=== PATIENT | female | born 1995 | race Caucasian/White ===

== ENCOUNTER 2022-11-06 18:27 | Observation (INO) | payer MEDICAID ==
[~2022-11-06] VITALS: Ht 152.4 cm; Wt 66.2 kg
[2022-11-06] MEDS ORDERED: ONDANSETRON 4 MG/2 ML VIAL IM/IVP PRN (20:50)
[2022-11-06] MEDS ORDERED: PNV91TAB8 PO (21:26)
== END 2022-11-06 23:00 | disposition home or self-care (01) ==
LOC: MED 18:27 → MLD 18:28 → OBSVTOIN 18:42 → MLD 18:42 → INTOOBSV 18:42 → UNDOADMOB 18:42 → UNDODISOB 23:00
PROVIDERS: ADMIT Obstetrics & Gynecology; ATTEND Obstetrics & Gynecology
DX: O26.893 Other specified pregnancy related conditions, third trimester (principal); R10.9 Unspecified abdominal pain; Z20.822 Contact with and (suspected) exposure to COVID-19; O99.891 Other specified diseases and conditions complicating pregnancy; M54.9 Dorsalgia, unspecified; Z3A.31 31 weeks gestation of pregnancy
CPT/HCPCS: 81000; 87426; 96374; G0378; G0379; J2405; 99284

== ENCOUNTER 2022-12-08 16:35 | Observation (INO) | payer MEDICAID ==
[~2022-12-08] VITALS: Ht 152.4 cm; Wt 68.0 kg
[~2022-12-08 16:35] MED LIST: PNV91TAB8 PO
[2022-12-08 17:19] VITALS: BP 109/59; PULSE 84; RESP 19; TEMP 98.1
== END 2022-12-08 17:40 | disposition home or self-care (01) ==
LOC: MLD 16:35
PROVIDERS: ADMIT Obstetrics & Gynecology; ATTEND Obstetrics & Gynecology
DX: O62.9 Abnormality of forces of labor, unspecified (principal); Z3A.34 34 weeks gestation of pregnancy
CPT/HCPCS: G0378; G0379

== ENCOUNTER 2022-12-26 21:08 | Observation (INO) | payer MEDICAID ==
[~2022-12-26] VITALS: Ht 152.4 cm; Wt 68.5 kg
[2022-12-26] MEDS ORDERED: LACTATED RINGERS 1,000 ML IV SCH (22:00)
[2022-12-26 22:13] LABS: BASOPHILS # (AUTO) 0.1 K/uL (0.00-0.22); BASOPHILS % (AUTO) 0.6 % (0.0-2.0); EOSINOPHILS # (AUTO) 0.1 K/uL (0-0.4); EOSINOPHILS % (AUTO) 0.8 % (0.0-4.0); HEMATOCRIT 28.7 % (36-48); HEMOGLOBIN 9.5 g/dL (12.0-16.0); LYMPHOCYTES # (AUTO) 1.8 K/uL (2.5-16.5); LYMPHOCYTES % (AUTO) 19.8 % (20.5-51.1); MEAN CORPUSCULAR HEMOGLOBIN 26 pg (27-31); MEAN CORPUSCULAR HGB CONC 33 g/dL (33-37); MEAN CORPUSCULAR VOLUME 77.7 fL (80-94); MONOCYTES # (AUTO) 0.9 K/uL (0.8-1.0); MONOCYTES % (AUTO) 9.1 % (1.7-9.3); NEUTROPHILS # (AUTO) 6.5 K/uL (1.8-7.7); NEUTROPHILS % (AUTO) 69.7 % (42.2-75.2); PLATELET COUNT (AUTO) 287 K/uL (140-450); RED BLOOD CELL COUNT(AUTO) 3.69 MIL/uL (4.20-5.40); RED CELL DISTRIBUTION WIDTH 15.6 % (11.6-13.7); WHITE BLOOD COUNT (AUTO) 9.3 K/uL (4.8-10.8)
[2022-12-26 22:28] LABS: APPEARANCE,URINE CLEAR (CLEAR); BILIRUBIN,URINE NEGATIVE (NEGATIVE); BLOOD, URINE NEGATIVE (NEGATIVE); COLOR,URINE YELLOW (YELLOW); LEUKOCYTE ESTERASE ,URINE 1+ (NEGATIVE); NITRITE, URINE NEGATIVE (NEGATIVE); PROTEIN,URINE NEGATIVE (NEGATIVE); UGLUCOSE NEGATIVE (NEGATIVE); UROBILINOGEN,URINE 0.2 EU/dL (0.2 - 1)
[2022-12-26 22:55] LABS: ALBUMIN 2.5 g/dL (3.4-5.0); ANION GAP 13.2 (8-16); CALCIUM 8.5 mg/dL (8.5-10.1); CARBON DIOXIDE 23.1 mmol/L (21-32); CREATININE 0.5 mg/dL (0.6-1.3); POTASSIUM 3.3 mmol/L (3.5-5.1); TOTAL BILIRUBIN 0.2 mg/dL (0.0-1.0); TOTAL PROTEIN, SERUM 6.4 g/dL (6.4-8.2)
[2022-12-26 23:50] LABS: BACTERIA,URINE >30 (MANY) /HPF (None Seen); MUCUS,URINE 1+ /LPF (None Seen); RBC,URINE 0-5 /HPF (0-5); SQUAMOUS EPITHELIAL CELL,UR 4-10 (MOD) /LPF (0-3 (FEW))
== END 2022-12-27 05:00 | disposition home or self-care (01) ==
LOC: MLD 21:08
PROVIDERS: ADMIT Obstetrics & Gynecology; ATTEND Obstetrics & Gynecology
DX: O26.893 Other specified pregnancy related conditions, third trimester (principal); R42 Dizziness and giddiness; Z3A.36 36 weeks gestation of pregnancy
CPT/HCPCS: 36415; 80053; 81001; 85025; 87086; G0378

== ENCOUNTER 2023-01-14 17:34 | Observation (INO) | payer MEDICAID ==
[~2023-01-14] VITALS: Ht 152.4 cm; Wt 70.3 kg
[2023-01-14] MEDS ORDERED: CARBOPROST 250 MCG/ML AMP IM PRN (17:55)
[2023-01-14] MEDS ORDERED: LACTATED RINGERS 500 ML IV SCH (17:55)
[2023-01-14] MEDS ORDERED: LACTATED RINGERS 1,000 ML IV SCH (17:55)
[2023-01-14] MEDS ORDERED: OXYTOCIN 10 UNITS/ML VIAL IM SCH (17:55)
[2023-01-14] MEDS ORDERED: OXYTOCIN 20 UNITS in LACTATED RINGERS 1,000 ML IV SCH (17:55)
[2023-01-14] MEDS ORDERED: METHYLERGONOVINE 0.2 MG/ML AMP IM PRN (17:55)
[2023-01-14 18:32] LABS: BASOPHILS % (AUTO) 0.3 % (0.0-2.0); EOSINOPHILS % (AUTO) 0.3 % (0.0-4.0); HEMATOCRIT 29.3 % (36-48); HEMOGLOBIN 9.5 g/dL (12.0-16.0); LYMPHOCYTES # (AUTO) 1.4 K/uL (2.5-16.5); LYMPHOCYTES % (AUTO) 14.5 % (20.5-51.1); MEAN CORPUSCULAR HEMOGLOBIN 24 pg (27-31); MEAN CORPUSCULAR HGB CONC 32 g/dL (33-37); MEAN CORPUSCULAR VOLUME 74.9 fL (80-94); MONOCYTES # (AUTO) 0.6 K/uL (0.8-1.0); MONOCYTES % (AUTO) 6.3 % (1.7-9.3); NEUTROPHILS # (AUTO) 7.7 K/uL (1.8-7.7); NEUTROPHILS % (AUTO) 78.6 % (42.2-75.2); PLATELET COUNT (AUTO) 269 K/uL (140-450); RED BLOOD CELL COUNT(AUTO) 3.92 MIL/uL (4.20-5.40); RED CELL DISTRIBUTION WIDTH 16.6 % (11.6-13.7); WHITE BLOOD COUNT (AUTO) 9.8 K/uL (4.8-10.8)
[2023-01-14 18:48] LABS: INR 0.95 (0.8-1.2); PARTIAL THROMBOPLASTIN TIME 26.7 secs (22-35.6)
[2023-01-14 18:50] LABS: ALBUMIN 2.5 g/dL (3.4-5.0); ANION GAP 14.8 (8-16); CALCIUM 8.8 mg/dL (8.5-10.1); CARBON DIOXIDE 20.6 mmol/L (21-32); CREATININE 0.6 mg/dL (0.6-1.3); POTASSIUM 3.4 mmol/L (3.5-5.1); TOTAL BILIRUBIN 0.2 mg/dL (0.0-1.0); TOTAL PROTEIN, SERUM 6.6 g/dL (6.4-8.2)
[2023-01-14 19:01] VITALS: BP 114/59; PULSE 86; TEMP 98.2
[2023-01-14 20:37] LABS: BILIRUBIN,URINE NEGATIVE (NEGATIVE); BLOOD, URINE 2+ (NEGATIVE); LEUKOCYTE ESTERASE ,URINE 1+ (NEGATIVE); NITRITE, URINE NEGATIVE (NEGATIVE); PROTEIN,URINE NEGATIVE (NEGATIVE); UGLUCOSE NEGATIVE (NEGATIVE); UROBILINOGEN,URINE 0.2 EU/dL (0.2 - 1)
[2023-01-14 20:43] LABS: APPEARANCE,URINE HAZY (CLEAR); COLOR,URINE STRAW (YELLOW)
[2023-01-14 21:27] LABS: BACTERIA,URINE FEW /HPF (None Seen); RBC,URINE TOO NUMEROUS TO COUN /HPF (0-5); SQUAMOUS EPITHELIAL CELL,UR None Seen /LPF (0-3 (FEW)); WBC,URINE 0-5 /HPF (0-5)
[2023-01-14 21:42] LABS: AMPHETAMINE, URINE NEGATIVE ng/ml (NEG <=1000); BARBITURATE, URINE NEGATIVE ng/ml (NEG <=200); BENZODIAZEPINE, URINE NEGATIVE ng/mL (NEG <=200); CANNABINOID, URINE NEGATIVE ng/mL (NEG <=50); COCAINE, URINE NEGATIVE ng/mL (NEG <=300); OPIATE, URINE NEGATIVE ng/mL (NEG <=2000); PHENCYCLIDINE SCREEN,URINE NEGATIVE ng/mL (NEG <=25)
[2023-01-14] MEDS ORDERED: OXYTOCIN 20 UNITS/LR PREMIX 1,000 ML IV ONE (23:55)
[2023-01-16 06:08] LABS: HEPATITIS B SURFACE ANTIGEN Negative (Negative); RUBELLA AB IGG 1.26 index (Immune >0.99)
== END 2023-01-14 19:00 | disposition still patient (30) ==
LOC: MLD 17:34
PROVIDERS: ADMIT Obstetrics & Gynecology; ATTEND Obstetrics & Gynecology
DX: O26.893 Other specified pregnancy related conditions, third trimester (principal); R07.89 Other chest pain; R10.9 Unspecified abdominal pain; Z20.822 Contact with and (suspected) exposure to COVID-19; Z3A.39 39 weeks gestation of pregnancy
CPT/HCPCS: 36415; 80053; 80305; 81001; 85025; 85610; 85730; 86592; 86703; 86762; 86886; 86900; 86901; 87086; 87340; 87426; 93005; G0378; J2590

== ENCOUNTER 2023-01-14 19:02 | Inpatient (IN) | payer MEDICAID ==
[~2023-01-14] VITALS: Ht 152.4 cm; Wt 70.3 kg
[2023-01-14 19:05] VITALS: BP 109/59; PULSE 86; RESP 16; TEMP 97.5; O2SAT 100
[2023-01-14] MEDS ORDERED: NACL 0.9% 1,000 ML IV ONE (19:15)
[2023-01-14 20:02] LABS: BASOPHILS # (AUTO) 0.1 K/uL (0.00-0.22); BASOPHILS % (AUTO) 0.6 % (0.0-2.0); EOSINOPHILS % (AUTO) 0.4 % (0.0-4.0); HEMATOCRIT 30.9 % (36-48); HEMOGLOBIN 9.8 g/dL (12.0-16.0); LYMPHOCYTES # (AUTO) 1.3 K/uL (2.5-16.5); MEAN CORPUSCULAR HEMOGLOBIN 24 pg (27-31); MEAN CORPUSCULAR HGB CONC 32 g/dL (33-37); MEAN CORPUSCULAR VOLUME 76.1 fL (80-94); MONOCYTES # (AUTO) 0.6 K/uL (0.8-1.0); MONOCYTES % (AUTO) 5.9 % (1.7-9.3); NEUTROPHILS # (AUTO) 7.8 K/uL (1.8-7.7); NEUTROPHILS % (AUTO) 80.1 % (42.2-75.2); PLATELET COUNT (AUTO) 279 K/uL (140-450); RED BLOOD CELL COUNT(AUTO) 4.06 MIL/uL (4.20-5.40); RED CELL DISTRIBUTION WIDTH 16.6 % (11.6-13.7); WHITE BLOOD COUNT (AUTO) 9.8 K/uL (4.8-10.8)
[2023-01-14 20:30] LABS: ALBUMIN 2.5 g/dL (3.4-5.0); ANION GAP 13.7 (8-16); CALCIUM 8.9 mg/dL (8.5-10.1); CARBON DIOXIDE 20.7 mmol/L (21-32); CREATININE 0.5 mg/dL (0.6-1.3); POTASSIUM 3.4 mmol/L (3.5-5.1); TOTAL BILIRUBIN 0.3 mg/dL (0.0-1.0); TOTAL PROTEIN, SERUM 6.4 g/dL (6.4-8.2)
[2023-01-14 20:42] VITALS: O2SAT 98
[2023-01-14 21:19] VITALS: BP 103/54
[2023-01-14] MEDS ORDERED: ONDANSETRON 4 MG/2 ML VIAL IM/IVP PRN (22:50)
[2023-01-14] MEDS ORDERED: guaiFENesin DM 200/20 MG-10 ML 10 ML UDC PO PRN (22:50)
[2023-01-14] MEDS ORDERED: DOCUSATE SODIUM 100 MG GELCAP PO PRN (22:50)
[2023-01-14] MEDS ORDERED: ACETAMINOPHEN 325 MG TAB PO PRN (22:50)
[2023-01-14] MEDS ORDERED: NACL 0.9% 1,000 ML IV SCH (22:50)
[2023-01-14] MEDS ORDERED: ZOLPIDEM 5 MG TAB PO PRN (22:50)
[2023-01-14] MEDS ORDERED: POTASSIUM CHLORIDE 10 MEQ TABER PO PRN (22:50)
[2023-01-14] MEDS ORDERED: HYDROcodone/APAP 7.5/325 MG 1 TAB PO PRN (22:50)
[2023-01-14 23:20] VITALS: PULSE 91; RESP 18; O2SAT 98
[2023-01-14 23:27] VITALS: PULSE 95
[2023-01-15] VITALS: PULSE 88
[2023-01-15 02:21] LABS: APPEARANCE,URINE SL CLOUDY (CLEAR); BILIRUBIN,URINE NEGATIVE (NEGATIVE); BLOOD, URINE 3+ (NEGATIVE); COLOR,URINE YELLOW (YELLOW); LEUKOCYTE ESTERASE ,URINE 2+ (NEGATIVE); NITRITE, URINE NEGATIVE (NEGATIVE); PROTEIN,URINE NEGATIVE (NEGATIVE); UGLUCOSE NEGATIVE (NEGATIVE); UROBILINOGEN,URINE 0.2 EU/dL (0.2 - 1)
[2023-01-15 02:23] LABS: RBC,URINE 0-5 /HPF (0-5)
[2023-01-15 02:24] LABS: BACTERIA,URINE >30 (MANY) /HPF (None Seen); MUCUS,URINE 1+ /LPF (None Seen); SQUAMOUS EPITHELIAL CELL,UR 0-3 (FEW) /LPF (0-3 (FEW)); WBC,URINE TOO MANY TO COUNT /HPF (0-5)
[2023-01-15] MEDS ORDERED: MORPHINE SULFATE 4 MG/ML SYR IVP PRN (02:35)
[2023-01-15] MEDS ORDERED: LIDOCAINE 1% 500 MG/50 ML VIAL ONE (03:19)
[2023-01-15] MEDS ORDERED: METHYLERGONOVINE 0.2 MG/ML AMP ONE (03:23)
[2023-01-15] MEDS ORDERED: DOCUSATE SODIUM 100 MG GELCAP PO PRN (04:00)
[2023-01-15] MEDS ORDERED: SIMETHICONE 80 MG TAB.CHEW PO PRN (04:00)
[2023-01-15] MEDS ORDERED: IBUPROFEN 800 MG TAB PO PRN (04:00)
[2023-01-15] MEDS ORDERED: IBUPROFEN 600 MG TAB PO PRN (04:00)
[2023-01-15] MEDS ORDERED: MEASLES, MUMPS, AND RUBELLA 1 VIAL SQVAC ONE (04:00)
[2023-01-15] MEDS ORDERED: OXYTOCIN 10 UNITS/ML VIAL IM PRN (04:00)
[2023-01-15] MEDS ORDERED: HYDROcodone/APAP 5/325 MG 1 TAB TAB PO PRN ×2 (04:00)
[2023-01-15] MEDS ORDERED: bisacodyL 5 MG TABEC PO PRN (04:00)
[2023-01-15] MEDS ORDERED: BENZOCAINE/MENTHOL 20%-0.5% 60 GM CAN TP PRN (04:00)
[2023-01-15] MEDS ORDERED: METHYLERGONOVINE 0.2 MG TAB PO PRN (04:00)
[2023-01-15] MEDS ORDERED: METHYLERGONOVINE 0.2 MG/ML AMP IM PRN ×2 (04:00→18:45)
[2023-01-15 06:52] LABS: BASOPHILS % (AUTO) 0.1 % (0.0-2.0); HEMATOCRIT 30.8 % (36-48); HEMOGLOBIN 9.7 g/dL (12.0-16.0); LYMPHOCYTES # (AUTO) 0.4 K/uL (2.5-16.5); LYMPHOCYTES % (AUTO) 2.2 % (20.5-51.1); MEAN CORPUSCULAR HEMOGLOBIN 24 pg (27-31); MEAN CORPUSCULAR HGB CONC 31 g/dL (33-37); MEAN CORPUSCULAR VOLUME 75.7 fL (80-94); MONOCYTES # (AUTO) 0.9 K/uL (0.8-1.0); MONOCYTES % (AUTO) 4.8 % (1.7-9.3); NEUTROPHILS # (AUTO) 17.5 K/uL (1.8-7.7); NEUTROPHILS % (AUTO) 92.9 % (42.2-75.2); PLATELET COUNT (AUTO) 293 K/uL (140-450); RED BLOOD CELL COUNT(AUTO) 4.06 MIL/uL (4.20-5.40); RED CELL DISTRIBUTION WIDTH 16.6 % (11.6-13.7); WHITE BLOOD COUNT (AUTO) 18.9 K/uL (4.8-10.8)
[2023-01-15 06:54] LABS: ALBUMIN 2.3 g/dL (3.4-5.0); ANION GAP 15.5 (8-16); CALCIUM 8.4 mg/dL (8.5-10.1); CREATININE 0.5 mg/dL (0.6-1.3); POTASSIUM 3.5 mmol/L (3.5-5.1); TOTAL BILIRUBIN 0.3 mg/dL (0.0-1.0)
[2023-01-15] MEDS ORDERED: PANTOPRAZOLE 40 MG TABEC PO SCH (09:00)
[2023-01-15] MEDS ORDERED: ONDANSETRON 4 MG/2 ML VIAL IVP PRN (18:45)
[2023-01-15] MEDS ORDERED: MORPHINE SULFATE 5 MG/ML VIAL IVP PRN (18:45)
[2023-01-15] MEDS ORDERED: LACTATED RINGERS 1,000 ML IV SCH (18:45)
[2023-01-15] MEDS ORDERED: OXYTOCIN 20 UNITS in LACTATED RINGERS 1,000 ML IV SCH (18:45)
[2023-01-16] MEDS ORDERED: FLU VACCINE QS2023-24 0.5 ML SYR IMVAC ONE (05:40)
[2023-01-16 05:43] LABS: BASOPHILS # (AUTO) 0.1 K/uL (0.00-0.22); BASOPHILS % (AUTO) 0.7 % (0.0-2.0); EOSINOPHILS # (AUTO) 0.1 K/uL (0-0.4); EOSINOPHILS % (AUTO) 0.7 % (0.0-4.0); HEMATOCRIT 21.7 % (36-48); LYMPHOCYTES # (AUTO) 2.3 K/uL (2.5-16.5); LYMPHOCYTES % (AUTO) 20.2 % (20.5-51.1); MEAN CORPUSCULAR HEMOGLOBIN 24 pg (27-31); MEAN CORPUSCULAR HGB CONC 32 g/dL (33-37); MEAN CORPUSCULAR VOLUME 75.4 fL (80-94); MONOCYTES # (AUTO) 0.6 K/uL (0.8-1.0); MONOCYTES % (AUTO) 4.9 % (1.7-9.3); NEUTROPHILS # (AUTO) 8.5 K/uL (1.8-7.7); NEUTROPHILS % (AUTO) 73.5 % (42.2-75.2); PLATELET COUNT (AUTO) 231 K/uL (140-450); RED BLOOD CELL COUNT(AUTO) 2.88 MIL/uL (4.20-5.40); RED CELL DISTRIBUTION WIDTH 16.7 % (11.6-13.7); WHITE BLOOD COUNT (AUTO) 11.5 K/uL (4.8-10.8)
[2023-01-16 05:53] LABS: ANION GAP 11.8 (8-16); CALCIUM 8.4 mg/dL (8.5-10.1); CARBON DIOXIDE 23.9 mmol/L (21-32); CREATININE 0.5 mg/dL (0.6-1.3); POTASSIUM 3.7 mmol/L (3.5-5.1); TOTAL BILIRUBIN 0.2 mg/dL (0.0-1.0); TOTAL PROTEIN, SERUM 5.3 g/dL (6.4-8.2)
[2023-01-16] MEDS ORDERED: FERROUS SULFATE 325 MG TABEC PO SCH (17:00)
== END 2023-01-16 18:02 | disposition home or self-care (01) | DRG 560 ==
LOC: MED 19:02 → MTU 22:50 → MLD 01-15 02:45 → MFCC 01-15 08:22
PROVIDERS: ADMIT Obstetrics & Gynecology; ATTEND Obstetrics & Gynecology
PROC: 10E0XZZ Delivery of Products of Conception, External Approach (ICD-10-PCS; principal; 2023-01-15)
DX: O99.02 Anemia complicating childbirth (principal); Z37.0 Single live birth; D62 Acute posthemorrhagic anemia; O75.89 Other specified complications of labor and delivery; E87.6 Hypokalemia; R07.9 Chest pain, unspecified; Z3A.39 39 weeks gestation of pregnancy
CPT/HCPCS: 36415; 59409; 71045; 80053; 81001; 83880; 84484; 85025; 85379; 86592; 86886; 86900; 86901; 87081; 90715; 93005; 93970; 96360; 96372; 99285; J2001; J2210

== ENCOUNTER 2023-10-10 06:07 | Day surgery (SDC) | payer OTHER ==
[~2023-10-10] VITALS: Ht 152.4 cm; Wt 65.8 kg
[2023-10-10] MEDS ORDERED: MIDAZOLAM 2 MG/2 ML VIAL ONE (10:03)
[2023-10-10] MEDS ORDERED: fentaNYL citrate 0.05 MG/ML VIAL ONE (10:03)
[2023-10-10] MEDS ORDERED: DESFLURANE 240 ML BTL INH ONE (10:32)
[2023-10-10] MEDS ORDERED: GLYCOPYRROLATE 0.2 MG/ML VIAL ONE (10:32)
[2023-10-10] MEDS: BUPIVACAINE-MPF 0.25% 30 ML VIAL INJ ONE (10:55)
[2023-10-10] MEDS: LIDOCAINE/EPI 1% 1:100000 20 ML VIAL INJ ONE (10:55)
== END 2023-10-10 13:50 | disposition home or self-care (01) ==
LOC: MDS 06:07 → MMU 06:09 → MDS 13:50
PROVIDERS: ATTEND Obstetrics & Gynecology
DX: Z30.2 Encounter for sterilization (principal); Z98.891 History of uterine scar from previous surgery; Z79.899 Other long term (current) drug therapy; Z98.890 Other specified postprocedural states
CPT/HCPCS: 36415; 58661; 86886; 86900; 86901; J1100; J2001; J2250; J2405; J2704; J2710; J3010; J3490